=== PATIENT | female | born 1945 | race Caucasian/White ===

== ENCOUNTER 2018-11-16 08:06 | Emergency (ER) | payer OTHER ==
[~2018-11-16] VITALS: Ht 167.6 cm; Wt 41.3 kg
[2018-11-16 08:07] VITALS: Ht 167.6 cm; Wt 41.3 kg
[2018-11-16 09:13] VITALS: BP 147/97
== END 2018-11-16 09:13 | disposition home or self-care (01) ==
LOC: ED 08:06
DX: T63.311A Toxic effect of venom of black widow spider, accidental (unintentional), initial encounter (principal); M79.89 Other specified soft tissue disorders; E03.9 Hypothyroidism, unspecified; Z88.0 Allergy status to penicillin; Z98.890 Other specified postprocedural states; Z86.73 Personal history of transient ischemic attack (TIA), and cerebral infarction without residual deficits; Y92.89 Other specified places as the place of occurrence of the external cause
CPT/HCPCS: J7512